=== PATIENT | female | born 1975 | race Caucasian/White ===

== ENCOUNTER 2016-10-23 19:15 | Emergency (ER) | payer BC ==
[~2016-10-23] VITALS: Ht 162.6 cm; Wt 78.0 kg
[~2016-10-23 19:15] MED LIST: HYDR-3498 PO; ONDA4TAB35 PO
[2016-10-23 19:23] VITALS: Ht 162.6 cm; Wt 78.0 kg
[2016-10-23] MEDS ORDERED: ONDANSETRON (ODT) 4 MG TAB ODT STA (20:04)
[2016-10-23] MEDS ORDERED: HYDROCODONE/APAP (10/325) TAB PO ONE (20:30)
[2016-10-23 20:50] LABS: ADD SCAN DIFF NO
[2016-10-23 20:59] LABS: BASOPHILS % 0.2 % (0.0-2.0); EOSINOPHILS # 0.1 10^3/ul (0.0-0.5); EOSINOPHILS % 0.8 % (0.0-7.0); HEMATOCRIT 38.6 % (37.0-47.0); HEMOGLOBIN 13.3 g/dl (12.0-16.0); LYMPHOCYTES # 2.4 10^3/ul (0.8-2.9); LYMPHOCYTES % 16.8 % (15.0-51.0); MEAN CORPUSCULAR HGB CONC 34.5 g/dl (32.0-37.0); MEAN CORPUSCULAR VOLUME 87.1 fl (82.0-101.0); MEAN PLATELET VOLUME 10.6 fl (7.4-10.4); MONOCYTE # 0.7 10^3/ul (0.3-0.9); MONOCYTES % 5.1 % (0.0-11.0); NEUTROPHIL # 10.8 10^3/ul (1.6-7.5); NEUTROPHILS % 76.7 % (39.0-77.0); PLATELET COUNT 288 10^3/UL (140-415); RED BLOOD COUNT 4.43 10^6/ul (4.20-5.40); RED CELL DISTRIBUTION WIDTH 12.4 % (11.5-14.5)
[2016-10-23 21:02] LABS: ADD UMIC NO; URINE BILIRUBIN (Dip) NEGATIVE (NEGATIVE); URINE BLOOD (Dip) NEGATIVE (NEGATIVE); URINE COLOR YELLOW (YELLOW); URINE GLUCOSE (Dip) NEGATIVE (NEGATIVE); URINE KETONES (Dip) TRACE (NEGATIVE); URINE LEUKOCYTE ESTERASE (Dip) NEGATIVE (NEGATIVE); URINE NITRITE (Dip) NEGATIVE (NEGATIVE); URINE TOTAL PROTEIN (Dip) NEGATIVE (NEGATIVE); URINE UROBILINOGEN (Dip) 0.2 E.U./dL (0.1-1.0)
--- NOTE | 2016-10-23 21:07 | RADRPT ---
PROCEDURE: Right upper quadrant abdominal ultrasound. CLINICAL INDICATION: Abdominal pain TECHNIQUE: [place] scale and color doppler ultrasound images of the right upper quadrant. COMPARISON: Abdominal ultrasound 10/17/2015 FINDINGS: Pancreas: Visualized portions appear of normal echogenicity, no focal lesions. Liver: Morphology: The right lobe of the liver is elongated measuring up to 18.5 cm which may reflect Yulia del's lobe configuration. Echogenicity: Normal. Focal lesions: None. Main portal vein: Patent with hepatopetal flow. Biliary System: Normal appearing gallbladder wall. Multiple gallstones are present within the gallbladder. No intrahepatic biliary dilatation. Common bile duct measures 4.7 mm in maximal dimension. Kidneys: Right 9.4 cm in length. Right renal cortical thickness is preserved. Normal echogenicity. No hydronephrosis. No renal calculi. No focal lesions. No free fluid identified. IMPRESSION: Cholelithiasis without evidence of abnormal gallbladder wall thickening to suggest cholecystitis. Normal caliber of the intrahepatic and extrahepatic biliary system. Unchanged from the previous examination. RPTAT: AADD .Alvaro Nava MD, MD Date Time Electronically viewed and signed by .Alvaro Nava MD, MD on 10/23/2016 21:07 .B/
[2016-10-23 21:09] LABS: ALBUMIN 4.4 g/dl (3.3-4.9)
[2016-10-23 21:10] LABS: POTASSIUM 3.9 mmol/L (3.5-5.1)
[2016-10-23 21:12] LABS: ALBUMIN/GLOBULIN RATIO 1.29; BILIRUBIN,INDIRECT 0.2 mg/dl (0-1.1); BILIRUBIN,TOTAL 0.2 mg/dl (0.2-1.3); CREATININE 0.67 mg/dl (0.44-1.00); TOTAL PROTEIN 7.8 g/dl (6.1-8.1)
[2016-10-23 21:13] LABS: CALCIUM 9.6 mg/dl (8.4-10.2)
[2016-10-23] MEDS ORDERED: HYDR-902 PO (21:38)
[2016-10-23] MEDS ORDERED: ONDA4TAB14 PO (21:38)
[2016-10-23 21:49] VITALS: BP 108/59; PULSE 66; RESP 18; TEMP 98.4
--- NOTE | 2016-10-23 21:56 | ERD ---
ER Documentation Chief Complaint Date/Time DATE: 10/23/16 TIME: 21:53 Chief Complaint upper abd pain radaiting to back x 3 days HPI Patient is a 41-year-old female with no medical problems who presents with epigastric pain. The patient's pain radiates to her back. It has been there for the past 4 days. The pain was worse today. She has had no vomiting or diarrhea. She has no fevers. Her primary doctor is Dr. Valle. The pain is sharp in nature. ROS All systems reviewed and are negative except as per history of present illness. Medications Home Meds Active Scripts Ondansetron (Ondansetron Odt) 4 Mg Tab.rapdis, 4 MG PO Q6H Y for NAUSEA AND/OR VOMITING, #10 TAB Prov:RICH BAI MD 10/23/16 Hydrocodone/Acetaminophen ([place] 10-325 Tablet) 1 Each Tablet, 1 TAB PO Q6H Y for PAIN, #7 TAB Prov:RICH BAI MD 10/23/16 Ondansetron Hcl* (Zofran* ODT) 4 mg -ODT Tab.disper, 4 MG PO Q6 Y for NAUSEA AND /OR VOMITING, #10 TAB Prov:MARINE ALVARADO DO 10/17/15 Hydrocodone Bit-Acetaminophen* ([place]*) 5-325 Mg Tab, 1 TAB PO Q6 Y for PAIN, # 10 TAB Prov:MARINE ALVARADO DO 10/17/15 Allergies Allergies: Coded Allergies: No Known Allergy (Unverified , 10/17/15) PMhx/Soc Medical and Surgical Hx: pt denies Medical Hx History of Surgery: No Anesthesia Reaction: No Hx Neurological Disorder: No Hx Respiratory Disorders: No Hx Cardiac Disorders: No Hx Psychiatric Problems: No Hx Miscellaneous Medical Probl: Yes (Gallstones) Hx Alcohol Use: No Hx Substance Use: No Hx Tobacco Use: No Smoking Status: Never smoker FmHx Family History: No diabetes Physical Exam Vitals Vital Signs Date Time Temp Pulse Resp B/P Pulse Ox O2 Delivery O2 Flow Rate FiO2 10/23/16 21:49 98.4 66 18 108/59 100 10/23/16 19:23 98.4 79 29 111/66 100 Physical Exam Const: Mild distress secondary to pain Head: Atraumatic Eyes: Normal Conjunctiva ENT: Normal External Ears, Nose and Mouth. Neck: Full range of motion..~ No meningismus. Resp: Clear to auscultation bilaterally Cardio: Regular rate and rhythm, no murmurs Abd: Soft, right upper quadrant tenderness to palpation without rebound or guarding Skin: No petechiae or rashes Back: No midline or flank tenderness Ext: No cyanosis, or edema Neur: Awake and alert Psych: Normal Mood and Affect Result Diagram: 10/23/16203410/23/162034 Results 24 hrs Laboratory Tests Test 10/23/16 20:17 10/23/16 20:35 Urine Color YELLOW Urine Clarity CLEAR Urine pH 6.0 Urine Specific [place] >=1.030 Urine Ketones TRACE Urine Nitrite NEGATIVE Urine Bilirubin NEGATIVE Urine Urobilinogen 0.2 E.U./dL Urine Leukocyte Esterase NEGATIVE Urine Hemoglobin NEGATIVE Urine Glucose NEGATIVE% Urine Total Protein NEGATIVE White Blood Count 14.010^3/ul Red Blood Count 4.4310^6/ul Hemoglobin 13.3g/dl Hematocrit 38.6% Mean Corpuscular Volume 87.1fl Mean Corpuscular Hemoglobin 30.0pg Mean Corpuscular Hemoglobin Concent 34.5g/dl Red Cell Distribution Width 12.4% Platelet Count 24340^3/UL Mean Platelet Volume 10.6fl Neutrophils % 76.7% Lymphocytes % 16.8% Monocytes % 5.1% Eosinophils % 0.8% Basophils % 0.2% Nucleated Red Blood Cells % 0.0/100WBC Neutrophils # 10.810^3/ul Lymphocytes # 2.410^3/ul Monocytes # 0.710^3/ul Eosinophils # 0.110^3/ul Basophils # 0.010^3/ul Nucleated Red Blood Cells # 0.010^3/ul Sodium Level 142mmol/L Potassium Level 3.9mmol/L Chloride Level 102mmol/L Carbon Dioxide Level 27mmol/L Anion Gap 17 Blood Urea Nitrogen 18mg/dl Creatinine 0.67mg/dl Glucose Level 106mg/dl Calcium Level 9.6mg/dl Total Bilirubin 0.2mg/dl Direct Bilirubin 0.00mg/dl Indirect Bilirubin 0.2mg/dl Aspartate Amino Transf (AST/SGOT) 56IU/L Alanine Aminotransferase (ALT/SGPT) 69IU/L Alkaline Phosphatase 75IU/L Total Protein 7.8g/dl Albumin 4.4g/dl Globulin 3.40g/dl Albumin/Globulin Ratio 1.29 Lipase 47U/L Current Medications Medications (Trade) Dose Ordered Sig/Jaycee Route PRN Reason Start Time Stop Time Status Last Admin Dose Admin Acetaminophen/ Hydrocodone Bitart ([place] (10/325)) 1 tab ONCE ONCE PO 10/23/16 20:30 10/23/16 20:31 DC 10/23/16 20:50 Ondansetron HCl (Zofran Odt) 4 mg ONCE STAT ODT 10/23/16 20:04 10/23/16 20:06 DC 10/23/16 20:49 Procedures/MDM Ultrasound shows gallstones but no cholecystitis per radiology. Patient is a 41-year-old female with no medical problems who presents with abdominal pain. She has epigastric and right upper quadrant abdominal pain. LFTs were normal. White blood cell count was slightly elevated. She is not . Her ultrasound shows gallstones but no cholecystitis. I believe she has acute biliary colic. At this time I doubt cholecystitis, pancreatitis, appendicitis, or bowel obstruction. The patient will be discharged home with a prescription for [place] and Zofran. She should follow-up with her primary doctor as well as Dr. Vogel from general surgery within 24-48 hours for reevaluation. She may benefit from outpatient cholecystectomy. Departure Diagnosis: Primary Impression: Biliary colic Additional Impression: Abdominal pain Abdominal location: epigastric Qualified Code: R10.13 - Epigastric pain Condition: Fair Patient Instructions: Biliary Colic With Gallstone (Presumed) Referrals: KYLEE VOGEL M.D. Additional Instructions: Call your primary care doctor TOMORROW for an appointment during the next 1-2 days.See the doctor sooner or return here if your condition worsens before your appointment time. RICH BAI MD October 23, 2016 21:56
== END 2016-10-23 21:50 | disposition home or self-care (01) ==
LOC: FTE 19:15
DX: K80.50 Calculus of bile duct without cholangitis or cholecystitis without obstruction (principal)
CPT/HCPCS: 36415; 76705; 80053; 81003; 83690; 85025; Z7502; Z7610